=== PATIENT | female | born 1990 | race Two or more races ===

== ENCOUNTER 2017-01-16 20:03 | Emergency (ER) | payer OTHER ==
[~2017-01-16] VITALS: Ht 160 cm; Wt 66.9 kg
[2017-01-16] MEDS ORDERED: RANI15TA PO (20:12)
[2017-01-16] MEDS ORDERED: PYRI50TA2 PO (20:12)
[2017-01-16] MEDS ORDERED: UNIS25TA2 PO (20:12)
[2017-01-16] MEDS ORDERED: NS 1,000 ML IV ONE (20:45)
[2017-01-16] MEDS ORDERED: PROMETHAZINE INJ 25 MG/ML VIAL (J2550) IV ONE (20:45)
[2017-01-16 21:07] LABS: BASO % 0.3 % (0.0-1.0); EOS # 0.2 K/mm3 (0.0-0.50); EOS % 1.6 % (0.0-3.0); LARGE UNSTAINED CELL # 0.1 K/mm3 (0.0-0.4); LARGE UNSTAINED CELL % 1.1 % (0.0-4.0); LYMPH # 1.8 K/mm3 (1.5-6.5); LYMPH % 13.3 % (24.0-44.0); MEAN CORPUSCULAR HEMOGLOBIN 29.5 pg (27.0-33.0); MEAN CORPUSCULAR HGB CONC 33.1 g/dl (32.0-36.5); MEAN CORPUSCULAR VOLUME 89.1 fl (80.0-96.0); MONO # 0.5 K/mm3 (0.0-0.8); MONO % 3.8 % (0.0-5.0); NEUTROPHILS # 9.7 K/mm3 (1.8-7.7); NEUTROPHILS % 79.9 % (36.0-66.0); PLATELET COUNT, AUTOMATED 304 k/mm3 (150-450); RED CELL DISTRIBUTION WIDTH 13.2 % (11.5-14.5); WHITE BLOOD COUNT 12.2 K/mm3 (4.0-10.0)
[2017-01-16 21:37] LABS: ANION GAP 8 MEQ/L (8-16); BLOOD UREA NITROGEN 6 MG/DL (7-18); CALCIUM LEVEL 8.9 MG/DL (8.5-10.1); CARBON DIOXIDE LEVEL 27 MEQ/L (21-32); CHLORIDE LEVEL 100 MEQ/L (98-107); CREATININE FOR GFR 0.41 MG/DL (0.55-1.02); GLOMERULAR FILTRATION RATE > 60.0 (>60); GLUCOSE, FASTING 88 MG/DL (70-105); POTASSIUM SERUM 4.3 MEQ/L (3.5-5.1); SODIUM LEVEL 135 MEQ/L (136-145)
[2017-01-16] MEDS ORDERED: PROM25TA PO (22:37)
[2017-01-16 22:45] VITALS: BP 121/69
== END 2017-01-16 22:49 | disposition home or self-care (01) ==
LOC: M ED 20:42
DX: O21.1 Hyperemesis gravidarum with metabolic disturbance (principal); Z3A.10 10 weeks gestation of pregnancy; Z87.891 Personal history of nicotine dependence; Z79.899 Other long term (current) drug therapy

== ENCOUNTER 2017-02-12 15:31 | Emergency (ER) | payer OTHER ==
[~2017-02-12] VITALS: Ht 157.5 cm; Wt 64.4 kg
[~2017-02-12 15:31] MED LIST: PROM25TA PO; PYRI50TA2 PO; RANI15TA PO; UNIS25TA2 PO
[2017-02-12] MEDS ORDERED: COLA100C3 PO (15:46)
[2017-02-12] MEDS ORDERED: ZOFR20TA PO (15:46)
[2017-02-12] MEDS ORDERED: TUMS500C PO (15:46)
[2017-02-12] MEDS ORDERED: NS 1,000 ML IV ONE (16:00)
[2017-02-12 16:30] LABS: BASO % 0.3 % (0.0-1.0); EOS # 0.2 K/mm3 (0.0-0.50); EOS % 2.1 % (0.0-3.0); LARGE UNSTAINED CELL # 0.1 K/mm3 (0.0-0.4); LARGE UNSTAINED CELL % 0.9 % (0.0-4.0); LYMPH # 1.6 K/mm3 (1.5-6.5); LYMPH % 15.6 % (24.0-44.0); MEAN CORPUSCULAR HEMOGLOBIN 29.5 pg (27.0-33.0); MEAN CORPUSCULAR HGB CONC 33.7 g/dl (32.0-36.5); MEAN CORPUSCULAR VOLUME 87.6 fl (80.0-96.0); MONO # 0.5 K/mm3 (0.0-0.8); MONO % 4.8 % (0.0-5.0); NEUTROPHILS # 7.6 K/mm3 (1.8-7.7); NEUTROPHILS % 76.4 % (36.0-66.0); PLATELET COUNT, AUTOMATED 263 k/mm3 (150-450); RED CELL DISTRIBUTION WIDTH 13.4 % (11.5-14.5)
[2017-02-12 17:02] LABS: ANION GAP 7 MEQ/L (8-16); BLOOD UREA NITROGEN 5 MG/DL (7-18); CALCIUM LEVEL 8.4 MG/DL (8.5-10.1); CARBON DIOXIDE LEVEL 27 MEQ/L (21-32); CHLORIDE LEVEL 100 MEQ/L (98-107); CREATININE FOR GFR 0.46 MG/DL (0.55-1.02); GLOMERULAR FILTRATION RATE > 60.0 (>60); GLUCOSE, FASTING 91 MG/DL (70-105); MAGNESIUM LEVEL 1.8 MG/DL (1.8-2.4); POTASSIUM SERUM 3.9 MEQ/L (3.5-5.1); SODIUM LEVEL 134 MEQ/L (136-145)
[2017-02-12 17:36] VITALS: BP 95/60
--- NOTE | 2017-02-12 17:40 | REPUSA ---
OBSTETRICAL ULTRASOUND INDICATION: OB screening. FINDINGS: A single live intrauterine gestation was identified with a heart rate of 145 bpm. Th e amniotic fluid index was grossly normal. The placenta was anterior, without evidence of placenta previa. The fetus was in a cephalic lie. The cervix measures 3.2 cm in length and is closed. Estimate d weight is 90 g. BIOMETRIC MEASUREMENTS BPD 2.8 cm HC 10.1 cm AC 2 8.2 cm FL 1.2 cm IMPRESSION: 1. Single live fetus with a age based on today's measurements at 14 weeks 2 days, with an judy mated due date of 08/11/2017. 2. No gross abnormality appreciated. heart rate measures 145 bpm.
--- NOTE | 2017-02-13 07:22 | ECGEPIP ---
Stationary ECG Study [facility] - ED Test Date: 2017-02-12 Pat Name: MANDY VALVERDE Department: Room: - Gender: F Solution Designer: rn : 1990 Requested By: John Montalvo PA-C Order Number: [id number] Reading MD: Afsaneh Ayala Measurements Intervals [place] Rate: 68 P: 50 WV: 151 QRS: 63 QRSD: 94 T: 19 QT: 373 QTc: 397 Interpretive Statements SINUS RHYTHM NO PRIOR FOR COMPARISON Electronically Signed On 02-13-2017 7:22:15 EDT by Afsaneh Ayala
== END 2017-02-12 17:42 | disposition home or self-care (01) ==
LOC: M ED 15:58
DX: O26.892 Other specified pregnancy related conditions, second trimester (principal); R55 Syncope and collapse; O99.612 Diseases of the digestive system complicating pregnancy, second trimester; K59.00 Constipation, unspecified; O99.342 Other mental disorders complicating pregnancy, second trimester; F99 Mental disorder, not otherwise specified; Z3A.15 15 weeks gestation of pregnancy